=== PATIENT | female | born 2000 | race Caucasian/White ===

== ENCOUNTER 2019-04-05 11:15 | Observation (INO) ==
[2019-04-05] MEDS ORDERED: ONDANSETRON INJ 2 MG/ML 2 ML VIAL IV STA (12:05)
[2019-04-05] MEDS ORDERED: PIPERACILLIN/TAZOBACTAM 4.5 GM/120 ML BAG IV ONE (12:05)
[2019-04-05] MEDS ORDERED: SODIUM CHLORIDE 0.9% 1000ML 2,000 ML IV ONE (12:05)
[2019-04-05] MEDS ORDERED: PIPERACILL/TAZOBAC CONSULT ACTIVE PRN (12:05)
[2019-04-05] MEDS ORDERED: MoRPHine SULFATE 4 MG/ML 1 ML CARP\\VIAL IV STA (12:05)
[2019-04-05 12:09] LABS: Basophils # (auto) 0.02 K/uL (0-0.2); Basophils % (auto) 0.2 %; Eosinophils # (auto) 0.05 K/uL (0-0.5); Eosinophils % (auto) 0.4 %; Hematocrit (blood only) 36.6 % (37-47); Hemoglobin 12.4 g/dL (12.0-16.0); Immature Granulocytes # (auto) 0.02 K/uL (0.00-0.02); Immature Granulocytes % (auto) 0.2 %; Lymphocytes # (auto) 1.35 K/uL (1.2-3.4); Lymphocytes % (auto) 10.4 %; Mean Corpuscular Hemoglobin 29.7 pg (25-34); Mean Corpuscular Hgb Conc 33.9 g/dL (32-36); Mean Corpuscular Volume 87.6 fL (80-100); Mean Platelet Volume 9.8 fL (7.4-10.4); Monocytes # (auto) 1.25 K/uL (0.11-0.59); Monocytes % (auto) 9.6 %; Neutrophils # (auto) 10.29 K/uL (1.4-6.5); Neutrophils % (auto) 79.2 %; Platelet Count 230 K/uL (130-400); RDW Coefficient of Variation 13.1 % (11.5-14.5); RDW Standard Deviation 42.1 fL (36.4-46.3); Red Blood Count 4.18 M/uL (4.2-5.4); White Blood Count 12.98 K/uL (4.8-10.8)
[2019-04-05 12:25] LABS: Albumin Level 3.8 gm/dl (3.4-5.0); BUN Creatinine Ratio 13.2 (10-20); Calcium 8.9 mg/dl (8.5-10.1); Creatinine Clr Calc Pharmacy 80.5 ml/min; Est GFR (African American) 103.9; Est GFR (Non-African American) 89.6; Potassium 3.3 mmol/L (3.5-5.1)
[2019-04-05 12:27] LABS: Albumin Globulin Ratio 0.9 (0.9-2); Bilirubin,Total 1.2 mg/dl (0.2-1); Globulin 4.3 gm/dl (2.5-4.0); Total Protein 8.1 gm/dl (6.4-8.2)
--- NOTE | 2019-04-05 12:33 | Emergency Department Note ---
History of Present Illness General Chief complaint: Infection, Wound Stated complaint: PILONIDAL CYST Time Seen by Provider: 04/05/19 11:32 History of Present Illness Maximum Pain Intensity: 9 This patient is a 18-year-old female who presents ambulatory to the emergency department with her mother for evaluation of severe pain in the lower back and fever/chills. The pain is throbbing in nature. It is worse with sitting. The patient reports having a pilonidal cyst incised and drained on 03/18. She was put on antibiotics. She temporarily got better. The patient restarted antibiot ics, Bactrim, 2 days ago. Her symptoms have continued to worsen. The pain is now going down the right leg. She is also been nauseated without any vomiting. The patient is due to have surgery at the end of this week. Home Medications Home Medications Medication Instructions Recorded Confirmed Type acetaminophen [Tylenol] 325 mg PO Q6H PRN 03/27/19 04/05/19 History albuterol sulfate [ProAir HFA] 1 puff INHALATION Q6H PRN 03/27/19 04/05/19 History ibuprofen 200 mg PO Q6H PRN 03/27/19 04/05/19 History rizatriptan [Maxalt] 10 mg PO UD PRN 03/27/19 04/05/19 History Bactrim DS 800 mg-160 mg tablet 1 tab PO BID 7 Days #14 tab NS 04/03/19 04/05/19 Rx Allergies Allergy/AdvReac Type Severity Reaction Status Date / Time amoxicillin [From Augmentin] Allergy Vomiting Verified 04/05/19 12:09 clavulanic acid Allergy Vomiting Verified 04/05/19 12:09 [From Augmentin] doxycycline Allergy Chest Pain Verified 04/05/19 12:09 Past Med/Surg History Medical History Anxiety Cardiac murmur 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 - ECHO DONE AT AGE 7 - [facility] History of lumbar puncture Migraine Pilonidal cyst Pilonidal cyst with abscess Reactive airway disease RARELY USES PRN INH Surgical History History of removal of cyst RT EYE History of wisdom tooth extraction Nausea and vomiting after administration of anesthetic agent Family History Grandfather (Paternal) Family history of diabetes mellitus Social History Preferred Language: Latvian Communication Ability: Effective Private Watchman Required: No Beliefs That Will Affect Care: None Current Living Situation: Parent Feels Safe at Home: Yes Smoking Status: Never smoker Second Hand Exposure: No ; Hx Alcohol Use: No Hx Substance Use: No Review of Systems A total of 10 systems reviewed and were otherwise negative Physical Exam Vital Signs Vital Signs - 24 hr 04/05/19 11:19 04/05/19 12:35 04/05/19 14:18 Temperature 37.7 C H Temperature Source Oral Pulse Rate 119 H Pulse Rate [Apical] Pulse Rate [Left] 96 H 89 Pulse Rhythm [Apical] Pulse Rhythm [Left] Respiratory Rate 20 16 16 Respiratory Effort / Characteristics Non-Labored Spontaneous Non-Labored Spontaneous Non-Labored Spontaneous Respiratory Depth Normal Normal Respiratory Pattern Regular Blood Pressure 91/57 L Blood Pressure [Left Arm] 95/60 L 80/43 L Blood Pressure Mean 68 Blood Pressure Mean [Left Arm] 71 55 Blood Pressure Position Standing Blood Pressure Position [Left Arm] Lying Lying Pulse Oximetry 97 96 98 Oxygen Delivery Method Room Air Room Air Room Air Oxygen Flow Rate Sepsis Recent Fever Within 48 Hours No Sepsis New/Unexplained Change in Mental Status No Sepsis Action Taken by Nursing No Action Required 04/05/19 15:08 04/05/19 15:31 04/05/19 16:36 Temperature 37.1 C 36.8 C Temperature Source Oral Temporal Artery Scan Pulse Rate 92 H Pulse Rate [Apical] 113 H Pulse Rate [Left] 111 H Pulse Rhythm [Apical] Regular Pulse Rhythm [Left] Regular Respiratory Rate 16 16 14 Respiratory Effort / Characteristics Non-Labored Spontaneous Respiratory Depth Normal Normal Respiratory Pattern Regular Blood Pressure 81/44 L Blood Pressure [Left Arm] 82/47 L 83/45 L Blood Pressure Mean Blood Pressure Mean [Left Arm] 58 57 Blood Pressure Position Blood Pressure Position [Left Arm] Lying Right Lateral Pulse Oximetry 98 94 100 Oxygen Delivery Method Room Air Oxymask Oxygen Flow Rate 10 Sepsis Recent Fever Within 48 Hours Sepsis New/Unexplained Change in Mental Status Sepsis Action Taken by Nursing 04/05/19 16:45 04/05/19 16:55 04/05/19 17:05 Temperature Temperature Source Pulse Rate Pulse Rate [Apical] 90 81 97 H Pulse Rate [Left] Pulse Rhythm [Apical] Regular Regular Regular Pulse Rhythm [Left] Respiratory Rate 16 12 16 Respiratory Effort / Characteristics Non-Labored Spontaneous Non-Labored Spontaneous Non-Labored Spontaneous Respiratory Depth Normal Normal Normal Respiratory Pattern Regular Regular Regular Blood Pressure Blood Pressure [Left Arm] 97/57 L 83/55 L 95/59 L Blood Pressure Mean Blood Pressure Mean [Left Arm] 70 64 71 Blood Pressure Position Blood Pressure Position [Left Arm] Right Lateral Right Lateral Right Lateral Pulse Oximetry 100 100 100 Oxygen Delivery Method Oxymask Oxymask Oxymask Oxygen Flow Rate 10 10 2 Sepsis Recent Fever Within 48 Hours Sepsis New/Unexplained Change in Mental Status Sepsis Action Taken by Nursing 04/05/19 17:15 04/05/19 17:25 04/05/19 17:35 Temperature 37.1 C Temperature Source Temporal Artery Scan Pulse Rate Pulse Rate [Apical] 98 H 86 92 H Pulse Rate [Left] Pulse Rhythm [Apical] Regular Regular Regular Pulse Rhythm [Left] Respiratory Rate 12 13 12 Respiratory Effort / Characteristics Non-Labored Spontaneous Non-Labored Spontaneous Non-Labored Spontaneous Respiratory Depth Normal Normal Normal Respiratory Pattern Regular Regular Regular Blood Pressure Blood Pressure [Left Arm] 95/64 L 98/60 L 97/65 L Blood Pressure Mean Blood Pressure Mean [Left Arm] 74 72 75 Blood Pressure Position Blood Pressure Position [Left Arm] Right Lateral Right Lateral Right Lateral Pulse Oximetry 98 95 97 Oxygen Delivery Method Room Air Room Air Room Air Oxygen Flow Rate Sepsis Recent Fever Within 48 Hours Sepsis New/Unexplained Change in Mental Status Sepsis Action Taken by Nursing Constitutional WD/WN, vitals as above Eyes EOM intact bilaterally ENMT external ear and nose normal, oropharynx normal Neck trachea midline Respiratory normal respiratory effort, lungs clear to auscultation Cardiovascular RRR, no murmur, no edema Gastrointestinal (Abdomen) normal bowel sounds, soft, nontender, no hepatosplenomegaly Musculoskeletal no cyanosis or clubbing, extremities motor strength 5/5 Skin Approximately 3 x 2 cm area of fluctuance/induration noted in the gluteal cleft. No pointing. No active drainage. Neurologic Alert and oriented x3. No focal motor deficits. Psychiatric Acting appropriately Course Course Patient was seen and examined Vital signs including blood pressure were reviewed medications list was verified with patient Labs were obtained, and a saline lock was established Medications were ordered as noted below Imaging was performed and reviewed The patient was ordered Zosyn 4.5 g IV Upon reevaluation, the patient was more comfortable. We discussed her results. She voiced understanding. The case was discussed with surgery. They agreed to come and evaluate the patient. The patient remained stable in the emergency department. Consultations Consultation #1: [facility] general surgery team Administered Medications Fentanyl Citrate (Fentanyl Citrate) 25 mcg IV Q5M PRN PRN Reason: PACU Use Only-Pain Stop: 04/05/19 19:58 Last Admin: 04/05/19 17:16 Dose: 25 mcg Documented by: [id number] Admin: 04/05/19 16:55 Dose: 25 mcg Documented by: [id number] Ioversol (Optiray 320 100ml) 94 ml IV ONCE PRN PRN Reason: Interaction Checking Stop: 04/09/19 13:03 Last Admin: 04/05/19 13:04 Dose: 94 ml Documented by: [id number] Discontinued Medications Bupivacaine HCl (Marcaine 0.5% Mpf) Confirm Administered Dose 30 ml .ROUTE .STK- MED ONE Stop: 04/05/19 15:04 Last Admin: 04/05/19 16:07 Dose: 20 ml Documented by: [id number] Bupivacaine Liposome (Exparel) Confirm Administered Dose 266 mg .ROUTE .STK-MED ONE Stop: 04/05/19 15:05 Last Admin: 04/05/19 16:08 Dose: 266 mg Documented by: [id number] Gelatin (Surgifoam Sponge 100 (Large)) Confirm Administered Dose 1 ea .ROUTE .STK-MED ONE Stop: 04/05/19 15:04 Last Admin: 04/05/19 16:08 Dose: Not Given Documented by: [id number] Piperacillin Sod/Tazobactam Sod (Zosyn) 4.5 gm in 120 mls @ 240 mls/hr IV NOW ONE Stop: 04/05/19 12:34 Last Infusion: 04/05/19 13:06 Dose: 0 mls/hr Documented by: [id number] Admin: 04/05/19 12:28 Dose: 240 mls/hr Documented by: [id number] Sodium Chloride (Nss 1000ml) 2,000 mls @ 999 mls/hr IV .Q2H1M ONE Stop: 04/05/19 14:05 Last Infusion: 04/05/19 14:28 Dose: 0 mls/hr Documented by: [id number] Admin: 04/05/19 12:26 Dose: 999 mls/hr Documented by: [id number] Lidocaine HCl (Xylocaine 2% Jelly) Confirm Administered Dose 5 ml .ROUTE .STK- MED ONE Stop: 04/05/19 15:04 Last Admin: 04/05/19 16:08 Dose: Not Given Documented by: [id number] Lidocaine/Epinephrine (Xylocaine/Epinephrine 1%) Confirm Administered Dose 20 ml .ROUTE .STK-MED ONE Stop: 04/05/19 15:04 Last Admin: 04/05/19 16:08 Dose: Not Given Documented by: [id number] Morphine Sulfate (Morphine Sulfate) 4 mg IV NOW STA Stop: 04/05/19 12:06 Last Admin: 04/05/19 12:26 Dose: 4 mg Documented by: [id number] Ondansetron HCl (Zofran) 4 mg IV NOW STA Stop: 04/05/19 12:06 Last Admin: 04/05/19 12:26 Dose: 4 mg Documented by: [id number] Scopolamine (Transderm-Scop) Confirm Administered Dose 1.5 mg .ROUTE .STK-MED ONE Stop: 04/05/19 15:24 Last Admin: 04/05/19 15:25 Dose: 1.5 mg Documented by: [id number] Medical Decision Making Medical Records Attestation: I reviewed the patient's medical records. Home Medications Current Medication List: was personally reviewed by me Laboratory Data Attestation: I reviewed the patient's lab results. Result diagrams: 04/05/19 11:45 04/05/19 11:45 Lab Results 04/05/19 04/05/19 04/05/19 Range/Units 11:45 11:45 11:45 WBC 12.98 H (4.8-10.8) K/uL RBC 4.18 L (4.2-5.4) M/uL Hgb 12.4 (12.0-16.0) g/dL Hct 36.6 L (37-47) % MCV 87.6 (80-100) fL MCH 29.7 (25-34) pg MCHC 33.9 (32-36) g/dL RDW Std Deviation 42.1 (36.4-46.3) fL RDW Coeff of Tejinder 13.1 (11.5-14.5) % Plt Count 230 (130-400) K/uL MPV 9.8 (7.4-10.4) fL Immature Gran % (Auto) 0.2 % Neut % (Auto) 79.2 % Lymph % (Auto) 10.4 % Villalba % (Auto) 9.6 % Eos % (Auto) 0.4 % Baso % (Auto) 0.2 % Immature Gran # (Auto) 0.02 (0.00-0.02) K/uL Neut # (Auto) 10.29 H (1.4-6.5) K/uL Lymph # (Auto) 1.35 (1.2-3.4) K/uL Villalba # (Auto) 1.25 H (0.11-0.59) K/uL Eos # (Auto) 0.05 (0-0.5) K/uL Baso # (Auto) 0.02 (0-0.2) K/uL Sodium 133 L (136-145) mmol/L Potassium 3.3 L (3.5-5.1) mmol/L Chloride 104 (98-107) mmol/L Carbon Dioxide 22 (21-32) mmol/L Anion Gap 7.0 (3-11) BUN 12 (7-18) mg/dl Creatinine 0.92 (0.6-1.2) mg/dl Est Cr Clr Drug Dosing 80.5 ml/min Est GFR ( Amer) 103.9 Est GFR (Non-Af Amer) 89.6 BUN/Creatinine Ratio 13.2 (10-20) Glucose 97 (70-99) mg/dl Lactate (0.4-2.0) mmol/L Calcium 8.9 (8.5-10.1) mg/dl Total Bilirubin 1.2 H (0.2-1) mg/dl AST 14 L (15-37) U/L ALT 16 (12-78) U/L Alkaline Phosphatase 61 (45-117) U/L Total Protein 8.1 (6.4-8.2) gm/dl Albumin 3.8 (3.4-5.0) gm/dl Globulin 4.3 H (2.5-4.0) gm/dl Albumin/Globulin Ratio 0.9 (0.9-2) HCG, Qual Negative (Negative) Urine Color Urine Appearance (Clear) Urine pH (4.5-7.5) Ur Specific [place] (1.000-1.030) Urine Protein (Negative) Urine Glucose (UA) (Negative) Urine Ketones (Negative) Urine Blood (Negative) Urine Nitrite (Negative) Urine Bilirubin (Negative) Urine Urobilinogen (Negative) Ur Leukocyte Esterase (Negative) Urine WBC (Auto) (0-5) /hpf Urine RBC (Auto) (0-4) /hpf U Hyaline Cast (Auto) (0-5) /lpf U Epithel Cells (Auto) (0-5) /lpf 04/05/19 04/05/19 04/05/19 Range/Units 11:55 14:40 15:13 WBC (4.8-10.8) K/uL RBC (4.2-5.4) M/uL Hgb (12.0-16.0) g/dL Hct (37-47) % MCV (80-100) fL MCH (25-34) pg MCHC (32-36) g/dL RDW Std Deviation (36.4-46.3) fL RDW Coeff of Tejinder (11.5-14.5) % Plt Count (130-400) K/uL MPV (7.4-10.4) fL Immature Gran % (Auto) % Neut % (Auto) % Lymph % (Auto) % Villalba % (Auto) % Eos % (Auto) % Baso % (Auto) % Immature Gran # (Auto) (0.00-0.02) K/uL Neut # (Auto) (1.4-6.5) K/uL Lymph # (Auto) (1.2-3.4) K/uL Villalba # (Auto) (0.11-0.59) K/uL Eos # (Auto) (0-0.5) K/uL Baso # (Auto) (0-0.2) K/uL Sodium (136-145) mmol/L Potassium (3.5-5.1) mmol/L Chloride (98-107) mmol/L Carbon Dioxide (21-32) mmol/L Anion Gap (3-11) BUN (7-18) mg/dl Creatinine (0.6-1.2) mg/dl Est Cr Clr Drug Dosing ml/min Est GFR ( Amer) Est GFR (Non-Af Amer) BUN/Creatinine Ratio (10-20) Glucose (70-99) mg/dl Lactate 3.0 H* 1.4 (0.4-2.0) mmol/L Calcium (8.5-10.1) mg/dl Total Bilirubin (0.2-1) mg/dl AST (15-37) U/L ALT (12-78) U/L Alkaline Phosphatase (45-117) U/L Total Protein (6.4-8.2) gm/dl Albumin (3.4-5.0) gm/dl Globulin (2.5-4.0) gm/dl Albumin/Globulin Ratio (0.9-2) HCG, Qual (Negative) Urine Color Yellow Urine Appearance Clear (Clear) Urine pH 5.5 (4.5-7.5) Ur Specific [place] > 1.045 H (1.000-1.030) Urine Protein Negative (Negative) Urine Glucose (UA) Negative (Negative) Urine Ketones 1+ H (Negative) Urine Blood 2+ H (Negative) Urine Nitrite Negative (Negative) Urine Bilirubin Negative (Negative) Urine Urobilinogen Negative (Negative) Ur Leukocyte Esterase Negative (Negative) Urine WBC (Auto) 1-5 (0-5) /hpf Urine RBC (Auto) 0-4 (0-4) /hpf U Hyaline Cast (Auto) 1-5 (0-5) /lpf U Epithel Cells (Auto) >30 H (0-5) /lpf Imaging Data Attestation: I personally reviewed and interpreted this imaging study as follows: Radiologist's Impression: CT abdomen and pelvis with IV contrast IMPRESSION: 5.8 x 3.5 x 2.1 cm midline rim-enhancing fluid collection of the upper cleft of the buttocks with infiltration. This suggests a pilonidal abscess. Collection extends to the underlying coccyx without CT evidence for osteomyelitis. Electronically signed by: Kevin Manley M.D. 04/05/2019 1:25 PM Dictated: 04/05/19 1310 Transcribed: 04/05/19 131 [facility] Narrative Differential diagnosis: Pilonidal abscess, pelvic abscess, sepsis, cellulitis, among others This patient is a 18-year-old female that returns to the emergency department with complaints of a pilonidal abscess causing increased pain and fever. On exam, she does have an abscess present. She was febrile. Vital signs indicate sepsis. Lactate bumped at 3.0. There is also leukocytosis. Imaging was performed. The patient does have a 5 x 3-1/2 cm pilonidal abscess extending to the coccyx. For the above reasons, and the fact that the patient failed outpatient therapy and bedside drainage in the past, it was felt that general surgery evaluation was warranted. They will evaluate the patient for possible inpatient/operative management. Impression & Plan Sepsis, Pilonidal abscess Discharge Plan Visit Data *Final* Discharge Date/Time: 04/05/19 15:08 Chief Complaint: Infection, Wound Stated Complaint: PILONIDAL CYST ED Provider: Harpreet Duque ED Midlevel Provider: Linda Tse Discharge Problem: Sepsis, Pilonidal abscess Patient Disposition: Still a Patient Discharge Instructions Interventions: ED Discharge Assessment Last Done: 04/05/19 15:08
[2019-04-05 12:35] LABS: Pregnancy Test, Serum Negative (Negative)
[2019-04-05] MEDS ORDERED: IOVERSOL 100ml IV PRN (13:04)
--- NOTE | 2019-04-05 13:26 | CT Scan Report ---
CT OF THE ABDOMEN AND PELVIS WITH CONTRAST CLINICAL HISTORY: Pilonidal cyst/sepsis COMPARISON STUDY: None. TECHNIQUE: Following IV administration of 94 mL of Optiray-320, axial images of the abdomen and pelvi s were obtained from the lung bases to the proximal femurs. Images were reviewed in the axial, sagitt al, and coronal planes. IV contrast was administered without complication. Automated exposure contro l was utilized for the study. A dose lowering technique was utilized adhering to the principles of A MANUEL. CT DOSE: 322.02 mGycm FINDINGS: Pectus excavatum deformity is noted. The liver, spleen, adrenal glands, kidneys and pancrea s are normal. There is no biliary or pancreatic ductal dilatation. There is no hydronephrosis. There is no evidence for a bowel obstruction. The appendix is normal. A 1.7 cm rim-enhancing left adnexal l esion suggests a corpus luteal cyst. No pneumatosis, free air or portal venous gas is present. There is no lymphadenopathy. Note is made of a 5.8 x 3.5 x 2.1 cm midline fluid collection of the upper nkechi ft of the buttocks with associated infiltration. Thick irregular enhancing wall is noted. The collect ion extends to the underlying coccyx. There is no CT evidence for osteomyelitis. No additional fluid collections are present. IMPRESSION: 5.8 x 3.5 x 2.1 cm midline rim-enhancing fluid collection of the upper cleft of the butt ocks with infiltration. This suggests a pilonidal abscess. Collection extends to the underlying coccy x without CT evidence for osteomyelitis. Electronically signed by: Kevin Manley M.D. 04/05/2019 1:25 PM
--- NOTE | 2019-04-05 14:52 | History & Physical Report ---
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 Discussed bedside I&D vs. OR I&D, patient would like to go to OR plan for incision and drainage pilonidal abscess the risks of the procedure were discussed to include bleeding, infection, recurrence, pain, prolonged healing, need for future or more extensive surgery, and risks of anesthesia Patient and her family understand that this is not definitive therapy for pilonidal disease, but we may be able to resect a large area of the disease antibiotics wound care consult post op may need obs overnight risks reviewed, plan of care discussed, questions answered, agrees to proceed w History of Present Illness Primary Care Provider: Ernesto Alfonso MD 18-year-old female known to me from outpatient evaluation for pilonidal disease, presented to the emergency department with pilonidal abscess. She has had incision and drainage procedures performed on 2 separate occasions, most recently at the end of February. She had an increase in discharge on Wednesday, and then no drainage yesterday. Today she woke up with significant pain and was having fevers. On evaluation in the emergency department she was tachycardic with marginal blood pressures and fevers up to 37.7. She has been on antibiotics for 1 or 2 doses since calling the clinic. CT with 5x3cm abscess. Allergies Allergy/AdvReac Type Severity Reaction Status Date / Time amoxicillin [From Augmentin] Allergy Vomiting Verified 04/05/19 12:09 clavulanic acid Allergy Vomiting Verified 04/05/19 12:09 [From Augmentin] doxycycline Allergy Chest Pain Verified 04/05/19 12:09 Home Medications Home Medications Medication Instructions Recorded Confirmed Type acetaminophen [Tylenol] 325 mg PO Q6H PRN 03/27/19 04/05/19 History albuterol sulfate [ProAir HFA] 1 puff INHALATION Q6H PRN 03/27/19 04/05/19 History ibuprofen 200 mg PO Q6H PRN 03/27/19 04/05/19 History rizatriptan [Maxalt] 10 mg PO UD PRN 03/27/19 04/05/19 History Bactrim DS 800 mg-160 mg tablet 1 tab PO BID 7 Days #14 tab NS 12/16/19 12/18/19 Rx Past Med/Surg History Medical History Anxiety 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 AT 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 7 - [facility] History of lumbar puncture Migraine Pilonidal cyst Reactive airway disease RARELY USES PRN INH Surgical History History of removal of cyst RT EYE History of wisdom tooth extraction Nausea and vomiting after administration of anesthetic agent Family History Grandfather (Paternal) Family history of diabetes mellitus Social History Preferred Language: Serbian Communication Ability: Effective Software Licensing Executive Required: No Beliefs That Will Affect Care: None Current Living Situation: Parent Feels Safe at Home: Yes Smoking Status: Never smoker Second Hand Exposure: No ; Hx Alcohol Use: No Hx Substance Use: No Physical Exam Constitutional: WD/WN, vitals as above Eyes: PERRL, conjunctivae normal, anicteric sclerae ENMT: external ear and nose normal, oropharynx normal Neck: trachea midline, no thyromegaly Respiratory: normal respiratory effort, lungs clear to auscultation Cardiovascular: RRR, no murmur, no edema Gastrointestinal (Abdomen): normal bowel sounds, soft, nontender, no hepatosplenomegaly 5x3 cm infected pilonidal cyst with some erthema and induration, fluctuance in middle, ttp. midline pits. Musculoskeletal: no cyanosis or clubbing, extremities motor strength 5/5 Skin: no rashes, warm and dry Neurologic: PERRL, EOMI, accommodation nl, no face palsy, no dysarthria Psychiatric: A+Ox3, euthymic affect Lymphatic: no cervical or axillary lymphadenopathy Results & Data Vital Signs (Past 12 Hours) Vital Signs Temp Pulse Pulse Resp BP BP Pulse Ox 04/05/19 14:18 89 16 80/43 L 98 04/05/19 12:35 96 H 16 95/60 L 96 04/05/19 11:19 37.7 C H 119 H 20 91/57 L 97 Laboratory Results Laboratory Results - last 24 hr 04/05/19 04/05/19 04/05/19 11:45 11:45 11:45 WBC 12.98 H RBC 4.18 L Hgb 12.4 Hct 36.6 L MCV 87.6 MCH 29.7 MCHC 33.9 RDW Std Deviation 42.1 RDW Coeff of Tejinder 13.1 Plt Count 230 MPV 9.8 Immature Gran % (Auto) 0.2 Neut % (Auto) 79.2 Lymph % (Auto) 10.4 [place] % (Auto) 9.6 Eos % (Auto) 0.4 Baso % (Auto) 0.2 Immature Gran # (Auto) 0.02 Neut # (Auto) 10.29 H Lymph # (Auto) 1.35 Titus # (Auto) 1.25 H Eos # (Auto) 0.05 Baso # (Auto) 0.02 Sodium 133 L Potassium 3.3 L Chloride 104 Carbon Dioxide 22 Anion Gap 7.0 BUN 12 Creatinine 0.92 Est Cr Clr Drug Dosing 80.5 Est GFR ( Amer) 103.9 Est GFR (Non-Af Amer) 89.6 BUN/Creatinine Ratio 13.2 Glucose 97 Lactate Calcium 8.9 Total Bilirubin 1.2 H AST 14 L ALT 16 Alkaline Phosphatase 61 Total Protein 8.1 Albumin 3.8 Globulin 4.3 H Albumin/Globulin Ratio 0.9 HCG, Qual Negative 04/05/19 11:55 WBC RBC Hgb Hct MCV MCH MCHC RDW Std Deviation RDW Coeff of Tejinder Plt Count MPV Immature Gran % (Auto) Neut % (Auto) Lymph % (Auto) [place] % (Auto) Eos % (Auto) Baso % (Auto) Immature Gran # (Auto) Neut # (Auto) Lymph # (Auto) [place] # (Auto) Eos # (Auto) Baso # (Auto) Sodium Potassium Chloride Carbon Dioxide Anion Gap BUN Creatinine Est Cr Clr Drug Dosing Est GFR ( Amer) Est GFR (Non-Af Amer) BUN/Creatinine Ratio Glucose Lactate 3.0 H* Calcium Total Bilirubin AST ALT Alkaline Phosphatase Total Protein Albumin Globulin Albumin/Globulin Ratio HCG, Qual Diagnostic Findings CT OF THE ABDOMEN AND PELVIS WITH CONTRAST CLINICAL HISTORY: Pilonidal cyst/sepsis COMPARISON STUDY: None. TECHNIQUE: Following IV administration of 94 mL of Optiray-320, axial images of the abdomen and pelvis were obtained from the lung bases to the proximal femurs. Images were reviewed in the axial, sagittal, and coronal planes. IV contrast was administered without complication. Automated exposure control was utilized for the study. A dose lowering technique was utilized adhering to the jaswinder Cedillo. CT DOSE: 322.02 mGycm FINDINGS: Pectus excavatum deformity is noted. The liver, spleen, adrenal glands, kidneys and pancreas are normal. There is no biliary or pancreatic ductal dilatation. There is no hydronephrosis. There is no evidence for a bowel obstruction. The appendix is normal. A 1.7 cm rim-enhancing left adnexal lesion suggests a corpus luteal cyst. No pneumatosis, free air or portal venous gas is present. There is no lymphadenopathy. Note is made of a 5.8 x 3.5 x 2.1 cm midline fluid collection of the upper cleft of the buttocks with associated infiltration. Thick irregular enhancing wall is noted. The collection extends to the underlying coccyx. There is no CT evidence for osteomyelitis. No additional fluid collections are present. IMPRESSION: 5.8 x 3.5 x 2.1 cm midline rim-enhancing fluid collection of the upper cleft of the buttocks with infiltration. This suggests a pilonidal abscess. Collection extends to the underlying coccyx without CT evidence for osteomyelitis. PG Care Time/CCT Total # of Minutes Spent Total Time Spent with Patient: Total time spent is greater than 50% in coordination of care (as documented) at patient's floor/unit and/or counseling patient:
[2019-04-05] MEDS ORDERED: ePHEDrine sulfate 50 MG/ML AMP IV PRN (14:58)
[2019-04-05] MEDS ORDERED: ATROPINE SULFATE 0.1 MG/ML 10ML SYR IV PRN (14:58)
[2019-04-05] MEDS ORDERED: ONDANSETRON INJ 2 MG/ML 2 ML VIAL IV PRN ×2 (14:58→18:30)
[2019-04-05] MEDS ORDERED: MIDAZOLAM HCL 1 MG/ML 2ML VIAL ONE (14:59)
[2019-04-05] MEDS ORDERED: ONDANSETRON INJ 2 MG/ML 2 ML VIAL ONE ×2 (14:59→16:39)
[2019-04-05] MEDS ORDERED: PROPOFOL IV EMULSION 10 MG/ML 20 ML VIAL IV ONE (14:59)
[2019-04-05] MEDS ORDERED: LIDOCAINE HCL 2% 2 ML VIAL/AMP(20MG/ML) INFIL ONE (14:59)
[2019-04-05] MEDS ORDERED: DEXAMETHASONE SOD INJ 4 MG/ML VIAL ONE (14:59)
[2019-04-05] MEDS ORDERED: fentaNYL citrate 100 MCG/2 ML VIAL ONE ×2 (14:59→16:02)
[2019-04-05] MEDS ORDERED: LIDOCAINE/EPINEPHRINE 1% 20 ML VIAL ONE (15:03)
[2019-04-05] MEDS ORDERED: LIDOCAINE 2% JELLY 5 ML TUBE ONE (15:03)
[2019-04-05] MEDS ORDERED: GELATIN SPONGE SZ 100 ONE (15:03)
[2019-04-05] MEDS ORDERED: BUPIVACAINE 0.5 % 5 MG/1 ML MPF 30ML VIAL ONE (15:03)
[2019-04-05] MEDS ORDERED: BUPIVACAINE LIPOSOME 1.3% 266 MG/20 ML VIAL ONE (15:04)
[2019-04-05 15:23] LABS: Appearance Urine Clear (Clear); Bilirubin Urine Negative (Negative); Blood Urine 2+ (Negative); Color Urine Yellow; Epithelial Cell Urine Auto >30 /lpf (0-5); Glucose Urine UA Negative (Negative); Ketones Urine 1+ (Negative); Leukocyte Esterase Urine Negative (Negative); Nitrite Urine Negative (Negative); Protein Urine Negative (Negative); RBC Urine Automated 0-4 /hpf (0-4); Specific Gravity Urine > 1.045 (1.000-1.030); Urobilinogen Urine Negative (Negative); pH Urine 5.5 (4.5-7.5)
[2019-04-05] MEDS ORDERED: SCOPOLAMINE 1.5 MG TDSY ONE (15:23)
--- NOTE | 2019-04-05 15:30 | Anesthesiology Consultation ---
Date of Service April 05, 2019 Assessment & Plan (1) Encounter for pre-operative examination: Chart Review Chart Review: Acceptable Risk for Surgery and Patient NOT seen in Pre Admission Testing Consults Requested none ASA ASA2 Proposed Anesthesia Anesthesia Type: General Risk / Benefits Reviewed With: PT / POA / Parent / Guardian, Accepts Plan and Informed Consent Obtained History Surgery Operation Date: 04/05/19 08:20 Proposed Procedures p Incision and Drainage Pilonidal Cyst - Alessio Link, DO, FACS Height/Weight Height: 5 ft 4 in Weight: 52.3 kg Allergies Allergy/AdvReac Type Severity Reaction Status Date / Time amoxicillin [From Augmentin] Allergy Vomiting Verified 04/05/19 12:09 clavulanic acid Allergy Vomiting Verified 04/05/19 12:09 [From Augmentin] doxycycline Allergy Chest Pain Verified 04/05/19 12:09 Medications Home Medications Medication Instructions Recorded Confirmed Last Taken acetaminophen [Tylenol] 325 mg PO Q6H PRN 03/27/19 04/05/19 Unknown albuterol sulfate [ProAir HFA] 1 puff INHALATION Q6H PRN 03/27/19 04/05/19 Unknown ibuprofen 200 mg PO Q6H PRN 03/27/19 04/05/19 Unknown rizatriptan [Maxalt] 10 mg PO UD PRN 03/27/19 04/05/19 Unknown Bactrim DS 800 mg-160 mg tablet 1 tab PO BID 7 Days #14 tab NS 04/03/19 04/05/19 04/04/19 Active Medications Generic Name Dose Route Start Last Admin Trade Name Freq PRN Reason Stop Dose Admin Ioversol 94 ml 04/05/19 13:04 04/05/19 13:04 Optiray 320 100ml IV 04/09/19 13:03 94 ml ONCE PRN Administration Interaction Checking Past Medical History Medical History Anxiety Cardiac murmur [employer] ONCE AT AGE 7 AND THEN DISCHARGED - ECHO DONE AT AGE 7 - PSH History of lumbar puncture Migraine Pilonidal cyst Pilonidal cyst with abscess Reactive airway disease RARELY USES PRN INH Exercise / Class Metabolic Activity II 4-5 Yardwork/Stairs/Walk up hill Past Family History Family History Grandfather (Paternal) Family history of diabetes mellitus Past Surgical History Surgical History History of removal of cyst RT EYE History of wisdom tooth extraction Nausea and vomiting after administration of anesthetic agent Past Anesthesia History No Hx of Anesthesia Complications and No Family Hx of Anesthesia Complications History of PONV No Hx of PONV and No Hx of Motion Sickness Social History Smoking Status: Never smoker Hx Alcohol Use: No Hx Substance Use: No substance use type: does not use Physical Exam Vital Signs Last Vital Signs Temp 37.7 C H 04/05/19 11:19 Pulse 92 H 04/05/19 15:08 Resp 16 04/05/19 15:08 BP 81/44 L 04/05/19 15:08 Pulse Ox 98 04/05/19 15:08 ENMT Mouth: no dentition abnormality Thyromental Distance: > or= 3.5 Finger Breadths Mallampati Class: II Neck normal visual inspection Respiratory normal respiratory effort Auscultation: lungs clear to auscultation bilaterally Cardiovascular Rate/Rhythm: regular rate and regular rhythm Psychiatric Orientation: alert Testing Laboratory Results 04/05/19 11:45 04/05/19 11:45 Urine Color Yellow 04/05/19 15:13 Urine Appearance Clear (Clear) 04/05/19 15:13 Urine pH 5.5 (4.5-7.5) 04/05/19 15:13 Ur Specific Cobalt > 1.045 (1.000-1.030) H 04/05/19 15:13 Urine Protein Negative (Negative) 04/05/19 15:13 Urine Glucose (UA) Negative (Negative) 04/05/19 15:13 Urine Ketones 1+ (Negative) H 04/05/19 15:13 Urine Nitrite Negative (Negative) 04/05/19 15:13 Ur Leukocyte Esterase Negative (Negative) 04/05/19 15:13 Urine WBC (Auto) 1-5 /hpf (0-5) 04/05/19 15:13 Urine RBC (Auto) 0-4 /hpf (0-4) 04/05/19 15:13 U Hyaline Cast (Auto) 1-5 /lpf (0-5) 04/05/19 15:13 U Epithel Cells (Auto) >30 /lpf (0-5) H 04/05/19 15:13
[2019-04-05] MEDS ORDERED: CLINDAMYCIN PHOS 300 MG/2 ML VIAL ONE (15:51)
[2019-04-05] MEDS ORDERED: ROCURONIUM BROMIDE 10 MG/ML 5 ML VIAL ONE (16:03)
[2019-04-05] MEDS ORDERED: LARYING-O-JET KIT (LTA) ONE (16:03)
--- NOTE | 2019-04-05 16:25 | Operative Report ---
PG Post Operative Report Pre & Post Diagnosis Operation Date: 04/05/19 08:20 Pre-Op Diagnosis: Pilonidal Cyst with abscess Post-Op Diagnosis: Pilonidal Cyst with abscess I identified the patient and participated in the time-out.: Yes Procedure Operation Date: 04/05/19 08:20 Actual Procedures p Incision and Drainage Pilonidal Cyst, pilonidal cystectomy- Alessio Link DO, JAQUELIN Surgeon Alessio Link DO, JAQUELIN Skate Shop Attendant Devi Ramsay Estimated Blood Loss 10 Findings Consistent with Post-Op Diagnosis Incision and drainage performed, approximately 40 cc of purulent drainage expressed, culture sent. Upon examination the entirety of the cyst cavity and pits were involved with the abscess, therefore pilonidal cystectomy was performed. Exparel was injected, hemostasis achieved, the wound was packed. Specimens Pilonidal cyst Pilonidal abscess cultures, Gram stain Anesthesia Type General Complications none Disposition Accompanied Patient To Recovery: No Disposition: Recovery Room Indications 18-year-old female with history of recurrent pilonidal cyst infections presented to the emergency department with worsening pain and swelling in the area. She had been placed on antibiotics over the past 24 hours but not improved. Plan for incision and drainage of pilonidal abscess. The risks of the procedure were discussed, all questions were answered, and the patient agreed to proceed with surgery as planned. Description of Procedure The patient was properly identified, consented, and taken to the operating room where general anesthesia was induced. She was placed in the prone jackknife position. Preoperative antibiotics were administered. The patient's buttocks were secured with tape to expose the midline cleft. The patient's lower back and buttocks were prepped and draped in the standard sterile fashion. Surgical timeout was performed and all parties were in agreement that this was the correct patient and procedure to be performed and we continued as planned. We began by performing an incision and drainage which yielded 40 cc of purulent drainage. Cultures were sent. Upon examination of the area there were multiple communicating pits involving the skin in the entirety of the area was undermined by abscess. At this point I elected to resect the overlying skin and inflamed tissue to hopefully provide definitive treatment for the patient. The diseased tissue including all pits and abscess cavities were excised. The diseased tissue was passed off as specimen. Hemostasis was achieved in the wound and the wound was irrigated. Exparel was injected in the surrounding fat. The wound was packed with moist gauze and a dressing was applied. The patient was placed back in the supine position. Anesthesia was ceased. The patient was transferred to the PACU for recovery in stable condition. All sponge, instrument, and needle counts were correct at the conclusion of the procedure. The patient tolerated the procedure well. The physician's registrar assistant was present and scrubbed for the entirety of the case. She was critical in positioning the patient, prepping and draping, retraction and exposure, excision of the tissue, packing of the wound, and placement of the dressings. I attest to the content of the Intraoperative Record and any orders documented therein. Any exceptions are noted below.
[2019-04-05] MEDS: fentaNYL citrate 100 MCG/2 ML VIAL IV PRN ×2 (16:55→17:16)
--- NOTE | 2019-04-05 17:43 | Anesthesiology Progress Note ---
Date of Service April 05, 2019 Anesthesia Post Procedure Vital Signs Vital Signs: Temp Pulse Pulse Pulse Resp BP BP 04/05/19 17:35 92 H 12 97/65 L 04/05/19 17:25 86 13 98/60 L 04/05/19 17:15 98.8 F 98 H 12 95/64 L 04/05/19 17:05 97 H 16 95/59 L 04/05/19 16:55 81 12 83/55 L 04/05/19 16:45 90 16 97/57 L 04/05/19 16:36 98.2 F 113 H 14 83/45 L 04/05/19 15:31 98.8 F 111 H 16 82/47 L 04/05/19 15:08 92 H 16 81/44 L 04/05/19 14:18 89 16 80/43 L 04/05/19 12:35 96 H 16 95/60 L 04/05/19 11:19 99.9 F H 119 H 20 91/57 L Pulse Ox 04/05/19 17:35 97 04/05/19 17:25 95 04/05/19 17:15 98 04/05/19 17:05 100 04/05/19 16:55 100 04/05/19 16:45 100 04/05/19 16:36 100 04/05/19 15:31 94 04/05/19 15:08 98 04/05/19 14:18 98 04/05/19 12:35 96 04/05/19 11:19 97 Pain Intensity Other: Pain Intensity: 9 Buttock: Pain Intensity: 3 Transfer of Care Handoff Completed per policy Notes Mental Status: alert / awake / arousable and participated in evaluation Patient Amnestic to Procedure: Yes Nausea / Vomiting: adequately controlled Pain: adequately controlled Airway Patency, RR, SpO2: stable & adequate BP & HR: stable & adequate Hydration State: stable & adequate Anesthetic Complications: no major complications apparent and Pt Satisfied with anesthetic care
[2019-04-05] MEDS ORDERED: RIZATRIPTAN BENZOATE 10 MG TAB PO PRN (18:30)
[2019-04-05] MEDS ORDERED: MoRPHine SULFATE 4 MG/ML 1 ML CARP\\VIAL IV PRN (18:30)
[2019-04-05] MEDS ORDERED: OXYCODONE/ACETAMINOPHEN 5mg/325mg TAB PO PRN (18:30)
[2019-04-05] MEDS ORDERED: MoRPHine SULFATE 2 MG/ML CARP IV PRN (18:30)
[2019-04-05] MEDS ORDERED: ALBUTEROL HFA 8 GM INHALER INH PRN (19:08)
[2019-04-06] MEDS: CLINDAMYCIN 600 MG in DEXTROSE 5% 50 ML IV SCH ×2 (00:06→08:20)
[2019-04-06] MEDS: OXYCODONE/ACETAMINOPHEN 5mg/325mg TAB PO PRN ×2 (05:09→09:47)
--- NOTE | 2019-04-06 11:18 | Surgery Progress Note ---
Date of Service April 06, 2019 Assessment & Plan (1) Pilonidal cyst with abscess: POD#1 incision and drainage of pilonidal cyst & pilonidal cystectomy Patient doing well, pain manageable with prn medication Tolerating regular diet Wound care at bedside, plan to place aquacel packing today and have patient follow up in wound clinic [facility] for wound vac Patient has Bactrim at home, will have her complete the course of this Will leave instructions for patient to follow up with Dr. Link in ~2 weeks Supervising Physician Co-Signing Physician Notes Patient seen and examined, agree with above. 18-year-old female status post excision of infected pilonidal cyst yesterday in the OR. She has pain at the incision site but this is significantly improved from prior to the procedure. She has not had any fevers. She was seen by wound care and they are recommending aqua cell today and likely placement of a wound VAC in the clinic tomorrow. Her pain is well controlled. She has 5 days of Bactrim at home. Pl an to discharged home, follow-up as scheduled in 2 weeks. She should follow-up with the wound clinic per their plan. Complete the 5 days of Bactrim. Call the clinic with questions or concerns. Subjective Patient doing well. Pain overall manageable with prn medication. Was pre- medicated for removal of packing which she tolerated. She is otherwise eating a regular diet and offers no other complaints. Physical Exam Physical Exam: awake/alert, lying on her side for dressing change Constitutional: well developed and well nourished Skin: wound bed clean, some bleeding from skin edges Results & Data Vital Signs (Past 12 Hours) Vital Signs Temp Pulse Resp BP BP Pulse Ox 04/06/19 07:07 36.8 C 76 16 86/45 L 95 04/06/19 05:51 94/55 L 04/06/19 03:57 36.8 C 82 16 88/48 L 96 04/05/19 23:35 36.9 C 97 H 16 92/54 L 95 PG Care Time/CCT Total # of Minutes Spent Total Time Spent with Patient: Total time spent is greater than 50% in coordination of care (as documented) at patient's floor/unit and/or counseling patient:
--- NOTE | 2019-04-06 12:05 | Discharge Summary ---
Date of Service April 06, 2019 Admission HPI Per Admitting Provider 18-year-old female known to me from outpatient evaluation for pilonidal disease, presented to the emergency department with pilonidal abscess. She has had incision and drainage procedures performed on 2 separate occasions, most recently at the end of February. She had an increase in discharge on Wednesday, and then no drainage yesterday. Today she woke up with significant pain and was having fevers. On evaluation in the emergency department she was tachycardic with marginal blood pressures and fevers up to 37.7. She has been on antibiotics for 1 or 2 doses since calling the clinic. CT with 5x3cm abscess. Principal Diagnosis Pilonidal cyst with abscess Discharge Exam awake/alert Constitutional well developed and well nourished Respiratory normal respiratory effort Skin surgical wound superior to buttock cleft, clean, some bloody ooziness from skin edges Discharge Data Allergies Allergy/AdvReac Type Severity Reaction Status Date / Time amoxicillin [From Augmentin] Allergy Vomiting Verified 04/05/19 12:09 clavulanic acid Allergy Vomiting Verified 04/05/19 12:09 [From Augmentin] doxycycline Allergy Chest Pain Verified 04/05/19 12:09 adhesive tape AdvReac Rash Verified 04/06/19 03:02 Consultations 04/06/19 10:47 Consult Case Management - Discharge Planning Routine Procedures Performed Operation Date: 04/05/19 08:20 Actual Procedures p Incision and Drainage Pilonidal Cyst - Alessio Link DO, FACS Ordered Studies 04/05/19 12:05 CT abd pelvis IV con only Stat Hospital Course (1) Pilonidal cyst with abscess: This is a 18y F who presented to the [facility] ED on 04/05/19 with known pilonidal disease. Patient has had this drained two times prior and was scheduled for surgery this upcoming Wednesday04/07/[address] Link. Of recent the patient was having drainage from the site that spontaneously stopped causing acute pain and fevers prompting the patient to be evaluated in the ED. In the ED patient's WBC 12.9 and was febrile. A CT scan was obtained revealing a 5.8 x 3.5 x 2.1 cm midline rim-enhancing fluid collection of the upper cleft of the buttocks with infiltration. This suggests a pilonidal abscess. Surgery was consulted and took patient to the OR for an incision and drainage of pilonidal cyst and pilonidal cystectomy. The patient tolerated the procedure well, see op note for full details. The patient recovered in the PACU and was transferred to the surgical floor in stable condition with kerlex packing in wound, where she continued on IV abx, was given prn pain medication, and ordered for a regular diet. POD#1 wound care evaluated patient and placed aquacel packing with plans for patient to follow up in the wound care clinic tomorrow for vac placement. She was recently prescribed a course of antibiotic (bactrim) of which she will complete the final 5 days for. On 04/06 she was deemed stable for discharge to home, pain managed, diet tolerated, and she was afebrile. She was instructed to follow up with wound care clinic for vac changes as well as to keep her [facility] ed appointment with Dr. Link on 04/20. Total Time Total Time Spent Total Time Spent (In Minutes): 15 Discharge Plan Discharge Items Patient Disposition: Home - Self-Care Reason For Visit: PILONIDAL ABSCESS Discharge Diagnosis: incision and drainage of pilonidal cyst Activity: Per Instructions section Lifting: No more than 10 pounds Bathing Comment: may shower Exercise/Sports: Wait until after follow-up appointment Driving/Machine Use: do not resume driving while taking narcotics for pain Non-emergency contact: Surgeon Call non-emergency contact if: you have any medication questions, your symptoms worsen, your pain is not controlled, your pain is worsening, your pain is concerning for you, you have a fever, your temperature is above 101.5, your wound has increased redness, your wound has increased drainage and your wound pain has increased Follow-up/Referrals: Alessio Link DO, FACS [Physician] - (You may keep your appointment with Dr. Link on 04/20/19) Ernesto Alfonso MD [Primary Care Provider] - Diet: Regular Addtl Attending Provider Instructions: Please complete the full course of antibiotic (Bactrim) you were recently prescribed. You will have a wound vac placed at the wound care clinic tomorrow. Pending Studies at Discharge: No Stand-Alone Forms: [employer], Smoking Cessation Medications and DC Order Prescriptions: New oxycodone-acetaminophen [Percocet] 5-325 mg tablet 1 - 2 tab PO .every 4-6 hours PRN (Reason: pain, for initial therapy. max 8 per day) Qty: 15 RF: 0 Continued sulfamethoxazole-trimethoprim [Bactrim DS] 800-160 mg tablet 1 tab PO BID 7 Days Qty: 14 RF: 0 acetaminophen [Tylenol] 325 mg Tablet 325 mg PO Q6H PRN (Reason: Pain) RF: 0 rizatriptan [Maxalt] 10 mg Tablet 10 mg PO UD PRN (Reason: Migraine Headache) RF: 0 ibuprofen 200 mg Tablet 200 mg PO Q6H PRN (Reason: Pain) RF: 0 albuterol sulfate [ProAir HFA] 90 mcg/actuation Hfa Aerosol Inhaler 1 puff INHALATION Q6H PRN (Reason: SOB) RF: 0 Discharge Orders: Discharge Order (Routine); Ordered 04/06/19 Ordered By: Devi Ramsay Admission Data Admit Date/Time: 04/05/19 16:35 Attending Provider: Alessio Link Admit Provider: Alessio Link Primary Care Provider: Ernesto Alfonso Other Interventions: Discharge Summary Assessment (RN) Last Done: 04/06/19 11:58
== END 2019-04-06 13:16 | disposition home or self-care (01) ==
LOC: ED 11:15 → 3W 15:08 → ASU 15:08